=== PATIENT | female | born 1965 | race Asian ===

== ENCOUNTER 2018-05-18 07:30 | Day surgery (SDC) | payer BC ==
[2018-05-18] MEDS ORDERED: MIDAZOLAM 1 MG/ML 2 ML INJ (09:29)
[2018-05-18] MEDS ORDERED: FENTAnyl 50 MCG/ML VIAL (09:29)
== END 2018-05-18 10:45 | disposition home or self-care (01) ==
LOC: GIL 07:30
DX: Z12.11 Encounter for screening for malignant neoplasm of colon (principal); K62.1 Rectal polyp
CPT/HCPCS: 45380; 88305